=== PATIENT | female | born 2000 | race Caucasian/White ===

== ENCOUNTER 2021-08-21 16:58 | Emergency (ER) | payer BC ==
[~2021-08-21] VITALS: Ht 157.5 cm; Wt 102.7 kg
[~2021-08-21 16:58] MED LIST: ALBUTEROL SULFAT3 M3 IH; ALBUTEROL1.25 MG/3 IH; FLOVENT 44MCG I13 GM IH; PREDNISONE10 MG PO
[2021-08-21] MEDS ORDERED: DULCOLAX STOOL100 MG PO (19:46)
[2021-08-21 19:56] VITALS: BP 147/100; PULSE 94
== END 2021-08-21 20:02 | disposition home or self-care (01) ==
LOC: COL.ER 16:58
DX: K59.00 Constipation, unspecified (principal); F41.9 Anxiety disorder, unspecified

== ENCOUNTER 2022-10-18 14:25 | Outpatient (RCR) | payer BC ==
[~2022-10-18 14:25] MED LIST changes: +DULCOLAX STOOL100 MG PO
== END 2022-10-28 | disposition home or self-care (01) ==
LOC: MKS.ESL.OT
DX: F88 Other disorders of psychological development (principal)